=== PATIENT | female | born 1995 | race Caucasian/White ===

== ENCOUNTER 2016-11-10 16:14 | Emergency (ER) | payer OTHER ==
[~2016-11-10] VITALS: Ht 167.6 cm; Wt 32.7 kg
[2016-11-10 17:07] LABS: HEMATOCRIT 37.5 % (36.0-46.0); MCH 30.2 PG (29.0-34.0); MCHC 33.9 G/DL (30.0-36.0); MCV 89.1 FL (83-99); MEAN PLAT.VOLUME 9.5 uM^3 (9.5-12.4); PLATELET COUNT 366 K/uL (156-360); RBC DIS.WIDTH-CV 12.8 % (11.8-14.6); RED BLOOD COUNT 4.21 M/uL (3.80-5.20); WHITE BLOOD COUNT 10.8 K/uL (4.1-10.2)
[2016-11-10 17:20] LABS: CHLORIDE 108 mEq/L (99-109); POTASSIUM 4.1 mEq/L (3.7-5.4); SODIUM 140 mEq/L (136-147)
[2016-11-10 17:22] LABS: GLUCOSE 89 mg/dL (70-99)
[2016-11-10 17:24] LABS: ANION GAP 9 MEQ/L (2-14); TOTAL BILIRUBIN 0.4 mg/dL (0.0-1.0)
[2016-11-10 17:26] LABS: ALKALINE PHOSPHATASE 63 IU/L (3-129); GFR ESTIMATE (CALCULATED) > 59 mL/min/
[2016-11-10 17:27] LABS: UREA NITROGEN (BUN) 11 mg/dL (9-23)
[2016-11-10 17:36] LABS: QUANTITATIVE HCG < 4.0 MIU/ML
[2016-11-10] MEDS ORDERED: SRONYX1 EACH PO (18:42)
[2016-11-10 18:45] LABS: ADD MIUA? YES; BILIRUBIN NEGATIVE; BLOOD LARGE; COLOR YELLOW ((YELLOW)); GLUCOSE (STRIP) NEGATIVE; KETONES NEGATIVE; LEUKOCYTES MODERATE; NITRITE NEGATIVE; PROTEIN (STRIP) NEGATIVE; SPECIFIC GRAVITY 1.017 (1.000-1.030); UROBILINOGEN 0.2 MG/DL (0.2-1.0)
[2016-11-10 20:11] LABS: BACTERIA 2+; CASTS NONE SEEN /LPF; CRYSTALS NONE SEEN; EPITHELIAL CELLS 1+; MUCUS NONE SEEN; RED BLOOD CELLS 15-20 /HPF (0-5); UCUL ADDED? YES
[2016-11-10] MEDS ORDERED: MACROBID100 MG PO (20:42)
[2016-11-10] MEDS ORDERED: TRAMADOL HCL50 MG PO (20:42)
[2016-11-10 21:05] VITALS: BP 123/79
[2016-11-11 12:52] LABS: CHLAMYDIA TRACHOMATIS NEGATIVE; NEISSERIA GONORRHOEAE NEGATIVE
== END 2016-11-10 21:12 | disposition home or self-care (01) ==
LOC: EME 16:14
PROVIDERS: Physician Assistant
DX: N30.00 Acute cystitis without hematuria (principal); R10.2 Pelvic and perineal pain; Z88.2 Allergy status to sulfonamides; Z88.0 Allergy status to penicillin
CPT/HCPCS: 76856; 80053; 81003; 84702; 85027; 87086; 87210; 87491; 87591; 99281; 99284

== ENCOUNTER 2016-11-13 19:31 | Emergency (ER) | payer OTHER ==
[~2016-11-13] VITALS: Ht 167.6 cm; Wt 79.2 kg
[~2016-11-13 19:31] MED LIST: MACROBID100 MG PO; SRONYX1 EACH PO; TRAMADOL HCL50 MG PO
[2016-11-13 20:10] LABS: ADD MIUA? YES; BILIRUBIN NEGATIVE; BLOOD TRACE; GLUCOSE (STRIP) NEGATIVE; KETONES NEGATIVE; LEUKOCYTES TRACE; NITRITE POSITIVE; PROTEIN (STRIP) NEGATIVE; SPECIFIC GRAVITY 1.003 (1.000-1.030)
[2016-11-13 20:11] LABS: COLOR DK YELLOW ((YELLOW))
[2016-11-13 20:39] LABS: HEMATOCRIT 39.6 % (36.0-46.0); MCH 29.5 PG (29.0-34.0); MCHC 33.8 G/DL (30.0-36.0); MCV 87.2 FL (83-99); MEAN PLAT.VOLUME 9.4 uM^3 (9.5-12.4); PLATELET COUNT 367 K/uL (156-360); RBC DIS.WIDTH-CV 12.4 % (11.8-14.6); RBC DIS.WIDTH-SD 38.7 % (39-53); RED BLOOD COUNT 4.54 M/uL (3.80-5.20)
[2016-11-13 20:50] LABS: CHLORIDE 105 mEq/L (99-109); POTASSIUM 4.1 mEq/L (3.7-5.4); SODIUM 141 mEq/L (136-147)
[2016-11-13 20:51] LABS: GLUCOSE 84 mg/dL (70-99)
[2016-11-13 20:53] LABS: ANION GAP 14 MEQ/L (2-14)
[2016-11-13 20:53] LABS: BACTERIA 1+; CASTS NONE SEEN /LPF; CRYSTALS NONE SEEN; EPITHELIAL CELLS RARE; MUCUS 1+; RED BLOOD CELLS 0-5 /HPF (0-5); UCUL ADDED? NO; WHITE BLOOD CELLS 0-5 /HPF (0-5)
[2016-11-13 20:55] LABS: GFR ESTIMATE (CALCULATED) > 59 mL/min/
[2016-11-13 20:56] LABS: UREA NITROGEN (BUN) 16 mg/dL (9-23)
[2016-11-13 21:03] LABS: QUANTITATIVE HCG < 4.0 MIU/ML
[2016-11-13] MEDS ORDERED: ZOFRAN ODT4 MG PO (22:00)
[2016-11-13] MEDS ORDERED: KEFLEX500 MG PO (22:00)
[2016-11-13] MEDS ORDERED: PERCOCET 5/31 TABLET PO (22:04)
[2016-11-13 22:24] VITALS: BP 115/68
== END 2016-11-13 22:25 | disposition home or self-care (01) ==
LOC: RME 19:31 → EME 19:31 → RME 22:25
PROVIDERS: Physician Assistant
DX: N12 Tubulo-interstitial nephritis, not specified as acute or chronic (principal); Z88.2 Allergy status to sulfonamides; Z88.0 Allergy status to penicillin
CPT/HCPCS: 80048; 81003; 84702; 85027; 99281; 99285; J0696; J1885; J2270; J2405; J7030; J7050

== ENCOUNTER 2017-11-11 15:51 | Emergency (ER) | payer OTHER ==
[~2017-11-11] VITALS: Ht 167.6 cm; Wt 72.7 kg
[~2017-11-11 15:51] MED LIST changes: +KEFLEX500 MG PO; +PERCOCET 5/31 TABLET PO; +ZOFRAN ODT4 MG PO
[2017-11-11 15:54] VITALS: BP 126/74
[2017-11-11] MEDS ORDERED: BUPROPION XL150 MG PO (16:09)
[2017-11-11] MEDS ORDERED: BACTROBAN OINTM22 GM TP (16:21)
[2017-11-11] MEDS ORDERED: VIBRAMYCIN100 MG PO (16:21)
== END 2017-11-11 16:41 | disposition home or self-care (01) ==
LOC: EME 15:51
DX: K13.0 Diseases of lips (principal); B95.8 Unspecified staphylococcus as the cause of diseases classified elsewhere; Z88.0 Allergy status to penicillin; Z88.2 Allergy status to sulfonamides
CPT/HCPCS: 99281; 99283

== ENCOUNTER 2017-11-13 10:24 | Emergency (ER) | payer OTHER ==
[~2017-11-13] VITALS: Ht 167.6 cm; Wt 72.1 kg
[~2017-11-13 10:24] MED LIST changes: +BACTROBAN OINTM22 GM TP; +BUPROPION XL150 MG PO; +VIBRAMYCIN100 MG PO
[2017-11-13 11:16] LABS: BASOPHIL (%) 0.6 % (0-1); BASOPHIL COUNT 0.1 K/uL (0-0.1); EOSINOPHIL (%) 1.4 % (0-5); EOSINOPHIL COUNT 0.1 K/uL (0-0.3); HEMATOCRIT 38.8 % (36.0-46.0); HEMOGLOBIN 13.1 G/DL (11.9-15.5); IMMATURE GRANULOCYTE (%) 0.4 % (0.0-0.7); LYMPHOCYTE (%) 16.1 % (15-42); LYMPHOCYTE COUNT 1.6 K/uL (1.0-2.8); MCH 30.3 PG (29.0-34.0); MCHC 33.8 G/DL (30.0-36.0); MCV 89.6 FL (83-99); MONOCYTE (%) 4.7 % (3-12); MONOCYTE COUNT 0.5 K/uL (0-0.8); NEUTROPHIL (%) 76.8 % (45-76); NEUTROPHIL COUNT 7.7 K/uL (1.8-6.4); PLATELET COUNT 347 K/uL (156-360); RBC DIS.WIDTH-CV 11.9 % (11.8-14.6); RBC DIS.WIDTH-SD 39.2 % (39-53); RED BLOOD COUNT 4.33 M/uL (3.80-5.20)
[2017-11-13 11:26] LABS: CHLORIDE 107 mEq/L (99-109); POTASSIUM 4.1 mEq/L (3.7-5.4)
[2017-11-13 11:27] LABS: SODIUM 139 mEq/L (136-147)
[2017-11-13 11:28] LABS: GLUCOSE 100 mg/dL (70-99)
[2017-11-13 11:32] LABS: CREATININE 0.9 mg/dL (0.6-1.3); GFR ESTIMATE (CALCULATED) > 59 mL/min/
[2017-11-13 11:33] LABS: UREA NITROGEN (BUN) 11 mg/dL (9-23)
[2017-11-13] MEDS ORDERED: ZOFRAN ODT8 MG PO ×2 (12:50→12:51)
[2017-11-13 12:56] VITALS: BP 112/75
== END 2017-11-13 13:20 | disposition home or self-care (01) ==
LOC: EME 10:24
DX: R11.10 Vomiting, unspecified (principal); K13.0 Diseases of lips; Z88.2 Allergy status to sulfonamides; Z88.0 Allergy status to penicillin
CPT/HCPCS: 71046; 80048; 81003; 83605; 85025; 99281; 99283